=== PATIENT | male | born 1975 | race Caucasian/White ===

== ENCOUNTER 2019-05-23 00:46 | Inpatient (IN) ==
[2019-05-23] MEDS ORDERED: ALBUTEROL/IPRATROPIUM 3 ML NEB RESP TX STA (01:07)
[2019-05-23] MEDS: ALBUTEROL 2.5 MG/3 ML NEB RESP TX SCH (01:15)
[2019-05-23 02:08] LABS: Basophils # 0.2 10*3/uL (0.0-0.2); Basophils % 0.5 % (0.0-0.8); Eosinophils # 1.1 10*3/uL (0.0-0.87); Eosinophils % 3.5 % (0.00-10.9); Hematocrit 27.4 VOL% (42.0-52.0); Hemoglobin 9.5 GM/DL (14.0-18.0); Immature Granulocytes % 1.5 %; Immature Granulocytes Absolute 0.46 #; Lymphocytes # 1.6 10*3/uL (1.4-4.0); Lymphocytes % 5.2 % (21.2-54.2); Mean Corpuscular HGB Conc 34.7 GM/DL (32-36); Mean Corpuscular Volume 114.6 FL (87-102); Mean Platelet Volume 8.8 FL (9.6-12.0); Monocytes % 11.5 % (1.7-12.7); Neutrophils % 77.8 % (38.7-73.9); Platelet Count 150 T/CUMM (130-400); Red Blood Count 2.39 MC/CUMM (3.8-5.5); Red Cell Distribution Width 15.1 % (9.3-17.3)
[2019-05-23 02:19] LABS: INR 1.7; PT Patient Result 18.8 SECS (9.6-12.2)
[2019-05-23 02:35] LABS: Albumin 1.4 G/DL (3.4-5.0); Osmolality,Calculated 258.9 MOS/KG (273-304); Total Protein 7.9 G/DL (6.4-8.3)
[2019-05-23 02:39] LABS: Anisocytosis 1+; Eosinophils 6 % (0-10); Hypochromasia Slight; Lymphocytes 6 % (20-55); Microcytosis Slight; Platelet Estimate Adequate; Polychromasia Slight; Segmented Neutrophils 83 % (50-85); Total Cells Counted 100
[2019-05-23 02:41] LABS: Bilirubin,Total 12.4 MG/DL (0.2-1.0)
[2019-05-23] MEDS ORDERED: ALBUMIN 5% 25 GM in PREMIX 1 EACH IV ONE (04:34)
[2019-05-23] MEDS ORDERED: cefTRIAXone 1,000 MG in SODIUM CHLORIDE 0.9% 100 ML IV STA (04:37)
[2019-05-23] MEDS ORDERED: ONDANSETRON 4 MG/2 ML VIAL IV PRN (05:15)
[2019-05-23] MEDS ORDERED: PHYTONADIONE 10 MG/1 ML AMP SUBCUT ONE (05:20)
[2019-05-23] MEDS ORDERED: POTASSIUM CHLORIDE RIDER 100 ML IV ONE (06:13)
[2019-05-23 06:33] LABS: Hepatitis B Surface Ag Quant < 0.10 Index; Hepatitis B Surface Ag Result Negative (Negative); Hepatitis C Virus Ab Quant 0.41 Index; Hepatitis C Virus Ab Result Negative (Negative)
[2019-05-23] MEDS: POTASSIUM CHLORIDE RIDER 10 MEQ in PREMIX 1 EACH IV PRN ×4 (06:39→13:59)
[2019-05-23] MEDS: cefTRIAXone 2,000 MG in SYRINGE 1 EACH IV SCH (07:08)
[2019-05-23 08:02] LABS: Eosinophils,Pleural Fluid 5 %; Lymphocytes,Pleural Fluid 53 %; Monocytes,Pleural Fluid 4 %; Neutrophils,Pleural Fluid 38 %
[2019-05-23 08:19] LABS: RBC,Pleural Fluid 3322 T/CUMM
[2019-05-23 08:33] LABS: Amylase,Body Fluid 32 U/L; Glucose,Pleural Fluid 147 MG/DL; LDH,Pleural Fluid 54 U/L; Total Protein,Pleural Fluid < 1.0 G/DL; Triglycerides,Body Fluid < 14 MG/DL
[2019-05-23] MEDS ORDERED: SPIRONOLACTONE 50 MG TABLET PO SCH (09:00)
[2019-05-23] MEDS ORDERED: prednisoLONE 15 MG/5 ML ORAL.SYR PO SCH (09:00)
[2019-05-23] MEDS: FOLIC ACID 1 MG TABLET PO SCH (09:24)
[2019-05-23] MEDS: THIAMINE 100 MG TABLET PO SCH (09:25)
[2019-05-23 09:37] LABS: Calcium 7.9 MG/DL (8.5-10.1); Osmolality,Calculated 259.8 MOS/KG (273-304)
[2019-05-23] MEDS ORDERED: prednisoLONE 15 MG/5 ML ORAL.SYR PO ONE (13:39)
[2019-05-23] MEDS ORDERED: SPIRONOLACTONE 50 MG TABLET PO ONE (13:39)
[2019-05-23] MEDS ORDERED: ALBUMIN 25% 12.5 GM in PREMIX 1 EACH IV ONE (13:50)
[2019-05-23] MEDS ORDERED: ALBUMIN 25% 12.5 GM/50 ML VIAL IV ONE (13:57)
[2019-05-23] MEDS ORDERED: MAGNESIUM SULF RIDER 2 GM in PREMIX 1 EACH IV ONE (15:04)
[2019-05-23 16:09] LABS: Apearance,Urine CLEAR (Clear); Blood, Urine Negative (Negative); Glucose,Urine (UA) Negative (Negative); Ketones,Urine Negative (Negative); Nitrite,Urine Negative (Negative); Protein,Urine Negative; RBC,Urine 2 /HPF (0-4); Urine Color Amber (Yellow); Urine Specific Gravity 1.044 (1.001-1.035); WBC,Urine 1 /HPF (0-6)
[2019-05-23 16:10] LABS: Bilirubin,Urine Small mg/dL (Negative)
[2019-05-23] MEDS: POTASSIUM CHLORIDE 20 MEQ TABLET PO SCH ×3 (16:10→23:39)
[2019-05-23 17:57] LABS: Neutrophils,Peritoneal Fluid 24 %; RBC,Peritoneal Fluid 331 T/CUMM
[2019-05-23] MEDS: LACTULOSE 20 GM/30 ML UDCUP PO SCH ×2 (18:33→23:40)
[2019-05-24 02:03] LABS: Basophils % 0.2 % (0.0-0.8); Eosinophils % 0.2 % (0.00-10.9); Hematocrit 22.4 VOL% (42.0-52.0); Hemoglobin 7.4 GM/DL (14.0-18.0); Immature Granulocytes % 1.4 %; Immature Granulocytes Absolute 0.24 #; Lymphocytes # 1.8 10*3/uL (1.4-4.0); Lymphocytes % 10.4 % (21.2-54.2); Mean Corpuscular Volume 120.4 FL (87-102); Mean Platelet Volume 9.1 FL (9.6-12.0); Monocytes % 9.8 % (1.7-12.7); Platelet Count 88 T/CUMM (130-400); Red Blood Count 1.86 MC/CUMM (3.8-5.5); Red Cell Distribution Width 15.7 % (9.3-17.3); White Blood Count 17.4 T/CUMM (4-12)
[2019-05-24 02:21] LABS: Albumin 1.5 G/DL (3.4-5.0); Bilirubin,Total 11.8 MG/DL (0.2-1.0); Calcium 7.9 MG/DL (8.5-10.1); Osmolality,Calculated 262.8 MOS/KG (273-304); Total Protein 6.4 G/DL (6.4-8.3)
[2019-05-24 02:38] LABS: Band Neutrophils 4 % (0-10); Lymphocytes 11 % (20-55); Segmented Neutrophils 78 % (50-85); Total Cells Counted 100
[2019-05-24 02:39] LABS: Anisocytosis 1+; Ovalocytes 1+; Platelet Estimate Decreased
[2019-05-24] MEDS: LACTULOSE 20 GM/30 ML UDCUP PO SCH ×3 (06:05→19:35)
[2019-05-24] MEDS: POTASSIUM CHLORIDE RIDER 10 MEQ in PREMIX 1 EACH IV PRN ×3 (06:05→10:48)
[2019-05-24] MEDS: cefTRIAXone 2,000 MG in SYRINGE 1 EACH IV SCH (06:05)
[2019-05-24] MEDS: SPIRONOLACTONE 50 MG TABLET PO SCH (08:33)
[2019-05-24] MEDS: FOLIC ACID 1 MG TABLET PO SCH (08:34)
[2019-05-24] MEDS: prednisoLONE 15 MG/5 ML ORAL.SYR PO SCH (08:34)
[2019-05-24] MEDS: THIAMINE 100 MG TABLET PO SCH (08:34)
[2019-05-24 08:38] LABS: Random Urine Protein (Bench) 20 MG/DL (<11.9)
[2019-05-25] MEDS: LACTULOSE 20 GM/30 ML UDCUP PO SCH ×4 (00:09→17:41)
[2019-05-25 04:52] LABS: Basophils % 0.1 % (0.0-0.8); Eosinophils # 0.2 10*3/uL (0.0-0.87); Eosinophils % 1.2 % (0.00-10.9); Hematocrit 23.8 VOL% (42.0-52.0); Immature Granulocytes % 1.3 %; Immature Granulocytes Absolute 0.23 #; Lymphocytes # 2.3 10*3/uL (1.4-4.0); Lymphocytes % 12.9 % (21.2-54.2); Mean Corpuscular HGB Conc 33.6 GM/DL (32-36); Mean Corpuscular Volume 116.7 FL (87-102); Mean Platelet Volume 9.1 FL (9.6-12.0); Monocytes % 17.2 % (1.7-12.7); Neutrophils % 67.3 % (38.7-73.9); Platelet Count 123 T/CUMM (130-400); Red Blood Count 2.04 MC/CUMM (3.8-5.5); Red Cell Distribution Width 15.8 % (9.3-17.3); White Blood Count 17.7 T/CUMM (4-12)
[2019-05-25 05:19] LABS: Albumin 1.6 G/DL (3.4-5.0); Bilirubin,Total 9.2 MG/DL (0.2-1.0); Osmolality,Calculated 266.4 MOS/KG (273-304); Total Protein 6.7 G/DL (6.4-8.3)
[2019-05-25 05:22] LABS: Band Neutrophils 1 % (0-10); Eosinophils 2 % (0-10); Hypochromasia Slight; Lymphocytes 11 % (20-55); Platelet Estimate Normal; Segmented Neutrophils 77 % (50-85); Total Cells Counted 100
[2019-05-25] MEDS: cefTRIAXone 2,000 MG in SYRINGE 1 EACH IV SCH (05:32)
[2019-05-25] MEDS ORDERED: LACTATED RINGERS 1,000 ML IV SCH (08:00)
[2019-05-25] MEDS: THIAMINE 100 MG TABLET PO SCH (11:05)
[2019-05-25] MEDS: SPIRONOLACTONE 50 MG TABLET PO SCH (11:05)
[2019-05-25] MEDS: FOLIC ACID 1 MG TABLET PO SCH (11:05)
[2019-05-25] MEDS: prednisoLONE 15 MG/5 ML ORAL.SYR PO SCH (11:10)
[2019-05-25] MEDS ORDERED: FUROSEMIDE 40 MG/4 ML VIAL IV ONE (15:53)
[2019-05-25] MEDS: SPIRONOLACTONE 100 MG TABLET PO SCH (16:38)
[2019-05-25] MEDS: FUROSEMIDE 40 MG/4 ML VIAL IV SCH (16:39)
[2019-05-25] MEDS: LEVOFLOXACIN INJ 500 MG in PREMIX 1 EACH IV SCH (17:41)
[2019-05-25] MEDS: PIPERACILLIN/TAZOBACTAM 3,375 MG in SODIUM CHLORIDE 0.9% 100 ML IV SCH (19:02)
[2019-05-25] MEDS: ALBUTEROL 1.25 MG/3 ML NEB RESP TX SCH (19:26)
[2019-05-25] MEDS ORDERED: SPIRONOLACTONE 50 MG TABLET PO SCH (21:00)
[2019-05-26] MEDS: LACTULOSE 20 GM/30 ML UDCUP PO SCH ×4 (00:33→17:19)
[2019-05-26] MEDS: PIPERACILLIN/TAZOBACTAM 3,375 MG in SODIUM CHLORIDE 0.9% 100 ML IV SCH ×3 (00:33→17:18)
[2019-05-26] MEDS: ALBUTEROL 1.25 MG/3 ML NEB RESP TX SCH ×4 (00:38→19:13)
[2019-05-26 05:20] LABS: Basophils % 0.1 % (0.0-0.8); Eosinophils # 0.1 10*3/uL (0.0-0.87); Eosinophils % 0.7 % (0.00-10.9); Hematocrit 24.3 VOL% (42.0-52.0); Hemoglobin 8.3 GM/DL (14.0-18.0); Immature Granulocytes Absolute 0.15 #; Lymphocytes # 1.7 10*3/uL (1.4-4.0); Lymphocytes % 11.7 % (21.2-54.2); Mean Corpuscular HGB Conc 34.2 GM/DL (32-36); Mean Platelet Volume 9.1 FL (9.6-12.0); Monocytes % 17.1 % (1.7-12.7); Neutrophils % 69.4 % (38.7-73.9); Platelet Count 108 T/CUMM (130-400); Red Blood Count 2.06 MC/CUMM (3.8-5.5); Red Cell Distribution Width 15.8 % (9.3-17.3); White Blood Count 14.8 T/CUMM (4-12)
[2019-05-26 05:39] LABS: Albumin 1.5 G/DL (3.4-5.0); Bilirubin,Total 8.2 MG/DL (0.2-1.0); Calcium 7.6 MG/DL (8.5-10.1); Osmolality,Calculated 269.1 MOS/KG (273-304); Total Protein 6.5 G/DL (6.4-8.3)
[2019-05-26 05:51] LABS: Eosinophils 2 % (0-10); Lymphocytes 6 % (20-55); Metamyelocytes 3 %; Platelet Estimate Decreased; Segmented Neutrophils 70 % (50-85); Total Cells Counted 100
[2019-05-26 05:52] LABS: Hypochromasia 1+; Microcytosis 1+; Polychromasia Few
[2019-05-26] MEDS: SPIRONOLACTONE 100 MG TABLET PO SCH (10:46)
[2019-05-26] MEDS: FOLIC ACID 1 MG TABLET PO SCH (10:46)
[2019-05-26] MEDS: prednisoLONE 15 MG/5 ML ORAL.SYR PO SCH (10:47)
[2019-05-26] MEDS: THIAMINE 100 MG TABLET PO SCH (10:47)
[2019-05-26] MEDS: FUROSEMIDE 40 MG/4 ML VIAL IV SCH ×2 (10:47→15:08)
[2019-05-26] MEDS: POTASSIUM CHLORIDE RIDER 10 MEQ in PREMIX 1 EACH IV PRN ×3 (10:48→15:08)
[2019-05-26] MEDS: LEVOFLOXACIN INJ 500 MG in PREMIX 1 EACH IV SCH (17:18)
[2019-05-26] MEDS ORDERED: SPIRONOLACTONE 100 MG TABLET PO SCH (21:00)
[2019-05-27] MEDS: ALBUTEROL 1.25 MG/3 ML NEB RESP TX SCH ×4 (00:44→19:29)
[2019-05-27] MEDS: LACTULOSE 20 GM/30 ML UDCUP PO SCH ×4 (00:55→18:16)
[2019-05-27] MEDS: PIPERACILLIN/TAZOBACTAM 3,375 MG in SODIUM CHLORIDE 0.9% 100 ML IV SCH ×3 (01:00→18:17)
[2019-05-27 05:20] LABS: Basophils % 0.1 % (0.0-0.8); Eosinophils # 0.2 10*3/uL (0.0-0.87); Eosinophils % 1.5 % (0.00-10.9); Hematocrit 25.1 VOL% (42.0-52.0); Hemoglobin 8.5 GM/DL (14.0-18.0); Immature Granulocytes % 1.1 %; Immature Granulocytes Absolute 0.16 #; Lymphocytes # 2.1 10*3/uL (1.4-4.0); Mean Corpuscular HGB Conc 33.9 GM/DL (32-36); Mean Platelet Volume 8.7 FL (9.6-12.0); Monocytes % 17.5 % (1.7-12.7); Neutrophils % 64.8 % (38.7-73.9); Platelet Count 101 T/CUMM (130-400); Red Blood Count 2.11 MC/CUMM (3.8-5.5); Red Cell Distribution Width 15.8 % (9.3-17.3)
[2019-05-27 05:43] LABS: Albumin 1.4 G/DL (3.4-5.0); Bilirubin,Total 7.9 MG/DL (0.2-1.0); Calcium 7.4 MG/DL (8.5-10.1); Osmolality,Calculated 270.1 MOS/KG (273-304); Total Protein 6.5 G/DL (6.4-8.3)
[2019-05-27 05:49] LABS: Eosinophils 1 % (0-10); Hypochromasia Slight; Lymphocytes 9 % (20-55); Metamyelocytes 4 %; Platelet Estimate Decreased; Segmented Neutrophils 77 % (50-85); Smudge Cells Few; Total Cells Counted 100
[2019-05-27] MEDS: SPIRONOLACTONE 100 MG TABLET PO SCH ×2 (08:54→20:59)
[2019-05-27] MEDS: FOLIC ACID 1 MG TABLET PO SCH (08:54)
[2019-05-27] MEDS: FUROSEMIDE 40 MG/4 ML VIAL IV SCH ×2 (08:57→17:57)
[2019-05-27] MEDS: THIAMINE 100 MG TABLET PO SCH (08:58)
[2019-05-27] MEDS: prednisoLONE 15 MG/5 ML ORAL.SYR PO SCH (08:58)
[2019-05-27] MEDS: POTASSIUM CHLORIDE RIDER 10 MEQ in PREMIX 1 EACH IV PRN ×3 (14:34→21:03)
[2019-05-27] MEDS: LEVOFLOXACIN INJ 500 MG in PREMIX 1 EACH IV SCH (18:02)
[2019-05-28] MEDS: ALBUTEROL 1.25 MG/3 ML NEB RESP TX SCH ×4 (00:23→19:10)
[2019-05-28] MEDS: LACTULOSE 20 GM/30 ML UDCUP PO SCH ×4 (00:28→17:42)
[2019-05-28] MEDS: POTASSIUM CHLORIDE RIDER 10 MEQ in PREMIX 1 EACH IV PRN (00:29)
[2019-05-28] MEDS: PIPERACILLIN/TAZOBACTAM 3,375 MG in SODIUM CHLORIDE 0.9% 100 ML IV SCH ×3 (01:35→16:47)
[2019-05-28 05:51] LABS: Basophils % 0.1 % (0.0-0.8); Eosinophils # 0.1 10*3/uL (0.0-0.87); Eosinophils % 0.7 % (0.00-10.9); Hematocrit 27.1 VOL% (42.0-52.0); Immature Granulocytes % 0.8 %; Immature Granulocytes Absolute 0.13 #; Lymphocytes # 1.5 10*3/uL (1.4-4.0); Lymphocytes % 9.6 % (21.2-54.2); Mean Corpuscular HGB Conc 33.2 GM/DL (32-36); Mean Corpuscular Volume 118.9 FL (87-102); Mean Platelet Volume 9.2 FL (9.6-12.0); Monocytes % 14.5 % (1.7-12.7); Neutrophils % 74.3 % (38.7-73.9); Platelet Count 108 T/CUMM (130-400); Red Blood Count 2.28 MC/CUMM (3.8-5.5); Red Cell Distribution Width 15.5 % (9.3-17.3); White Blood Count 15.8 T/CUMM (4-12)
[2019-05-28 06:13] LABS: Albumin 1.6 G/DL (3.4-5.0); Bilirubin,Total 9.2 MG/DL (0.2-1.0); Calcium 7.5 MG/DL (8.5-10.1); Osmolality,Calculated 263.5 MOS/KG (273-304); Total Protein 6.9 G/DL (6.4-8.3)
[2019-05-28 06:17] LABS: Hypochromasia 1+
[2019-05-28 06:18] LABS: Microcytosis Slight; Platelet Estimate Decreased
[2019-05-28] MEDS ORDERED: MAGNESIUM SULF RIDER 2 GM in PREMIX 1 EACH IV PRN (07:21)
[2019-05-28] MEDS ORDERED: MAGNESIUM SULF RIDER 4 GM in PREMIX 1 EACH IV PRN (07:21)
[2019-05-28] MEDS: prednisoLONE 15 MG/5 ML ORAL.SYR PO SCH (08:48)
[2019-05-28] MEDS: FUROSEMIDE 40 MG/4 ML VIAL IV SCH ×2 (08:48→15:15)
[2019-05-28] MEDS: SPIRONOLACTONE 100 MG TABLET PO SCH ×2 (08:49→21:02)
[2019-05-28] MEDS: FOLIC ACID 1 MG TABLET PO SCH (08:49)
[2019-05-28] MEDS: THIAMINE 100 MG TABLET PO SCH (08:49)
[2019-05-28] MEDS ORDERED: POTASSIUM CHLORIDE 20 MEQ TABLET PO PRN ×2 (09:17→15:26)
[2019-05-28] MEDS: LEVOFLOXACIN INJ 500 MG in PREMIX 1 EACH IV SCH (16:46)
[2019-05-28] MEDS ORDERED: ALBUMIN 25% 50 GM in PREMIX 1 EACH IV ONE (18:30)
[2019-05-29] MEDS: LACTULOSE 20 GM/30 ML UDCUP PO SCH ×5 (00:13→23:41)
[2019-05-29] MEDS: ALBUTEROL 1.25 MG/3 ML NEB RESP TX SCH ×4 (00:28→19:50)
[2019-05-29] MEDS: PIPERACILLIN/TAZOBACTAM 3,375 MG in SODIUM CHLORIDE 0.9% 100 ML IV SCH (01:57)
[2019-05-29] MEDS: FOLIC ACID 1 MG TABLET PO SCH (08:36)
[2019-05-29] MEDS: SPIRONOLACTONE 100 MG TABLET PO SCH ×2 (08:37→21:08)
[2019-05-29] MEDS: THIAMINE 100 MG TABLET PO SCH (08:37)
[2019-05-29] MEDS: prednisoLONE 15 MG/5 ML ORAL.SYR PO SCH (08:43)
[2019-05-29] MEDS: BUMETANIDE 2.5 MG/10 ML VIAL IV SCH ×2 (08:44→16:00)
[2019-05-29] MEDS ORDERED: ALBUMIN 25% 50 GM in PREMIX 1 EACH IV ONE (09:00)
[2019-05-29 14:46] LABS: Albumin 2.6 G/DL (3.4-5.0); Bilirubin,Direct 4.49 MG/DL (0.0-0.20); Bilirubin,Indirect 6.5 MG/DL (0.0-1.0); Total Protein 7.3 G/DL (6.4-8.3)
[2019-05-30] MEDS: ALBUTEROL 1.25 MG/3 ML NEB RESP TX SCH ×4 (00:37→19:20)
[2019-05-30 05:22] LABS: Basophils % 0.1 % (0.0-0.8); Eosinophils # 0.2 10*3/uL (0.0-0.87); Eosinophils % 1.3 % (0.00-10.9); Hematocrit 24.2 VOL% (42.0-52.0); Hemoglobin 8.5 GM/DL (14.0-18.0); Immature Granulocytes % 1.4 %; Lymphocytes # 1.9 10*3/uL (1.4-4.0); Lymphocytes % 13.1 % (21.2-54.2); Mean Corpuscular HGB Conc 35.1 GM/DL (32-36); Mean Corpuscular Volume 115.2 FL (87-102); Mean Platelet Volume 9.2 FL (9.6-12.0); Monocytes % 18.1 % (1.7-12.7); Red Cell Distribution Width 14.8 % (9.3-17.3); White Blood Count 14.6 T/CUMM (4-12)
[2019-05-30 05:44] LABS: Platelet Count 95 T/CUMM (130-400)
[2019-05-30 05:46] LABS: Eosinophils 2 % (0-10); Lymphocytes 15 % (20-55); Platelet Estimate Decreased; Segmented Neutrophils 74 % (50-85); Total Cells Counted 100
[2019-05-30 05:47] LABS: Hypochromasia 1+; Ovalocytes Slight
[2019-05-30 05:48] LABS: Microcytosis Slight
[2019-05-30 05:49] LABS: Albumin 2.2 G/DL (3.4-5.0); Bilirubin,Total 10.6 MG/DL (0.2-1.0); Calcium 8.6 MG/DL (8.5-10.1); Osmolality,Calculated 257.1 MOS/KG (273-304); Total Protein 6.3 G/DL (6.4-8.3)
[2019-05-30 05:53] LABS: Albumin 2.2 G/DL (3.4-5.0); Bilirubin,Direct 4.03 MG/DL (0.0-0.20); Bilirubin,Indirect 6.4 MG/DL (0.0-1.0); Bilirubin,Total 10.4 MG/DL (0.2-1.0); Total Protein 6.4 G/DL (6.4-8.3)
[2019-05-30] MEDS: LACTULOSE 20 GM/30 ML UDCUP PO SCH ×3 (06:31→17:59)
[2019-05-30] MEDS: BUMETANIDE 2.5 MG/10 ML VIAL IV SCH ×2 (07:58→15:40)
[2019-05-30] MEDS ORDERED: PROPOFOL 200 MG/20 ML VIAL IV ONE (10:00)
[2019-05-30] MEDS ORDERED: LIDOCAINE 2% 5 ML VIAL ONE (10:00)
[2019-05-30] MEDS ORDERED: PHENYLEPHRINE 1 MG/10 ML SYRINGE IV ONE (10:00)
[2019-05-30] MEDS: FOLIC ACID 1 MG TABLET PO SCH (10:47)
[2019-05-30] MEDS: THIAMINE 100 MG TABLET PO SCH (10:47)
[2019-05-30] MEDS: prednisoLONE 15 MG/5 ML ORAL.SYR PO SCH (10:47)
[2019-05-30] MEDS: SPIRONOLACTONE 100 MG TABLET PO SCH ×2 (10:47→21:29)
[2019-05-30] MEDS ORDERED: HEPARIN DRIP 25,000 UNITS/500 ML PREMIX IV SCH (15:00)
[2019-05-30 16:28] LABS: PT Patient Result 21.6 SECS (9.6-12.2)
[2019-05-30] MEDS: PROPRANOLOL 20 MG TABLET PO SCH (21:29)
[2019-05-31] MEDS: ALBUTEROL 1.25 MG/3 ML NEB RESP TX SCH ×3 (00:15→14:46)
[2019-05-31] MEDS: LACTULOSE 20 GM/30 ML UDCUP PO SCH ×3 (00:23→14:55)
[2019-05-31 07:12] LABS: Basophils % 0.2 % (0.0-0.8); Eosinophils # 0.4 10*3/uL (0.0-0.87); Eosinophils % 2.8 % (0.00-10.9); Hematocrit 23.9 VOL% (42.0-52.0); Hemoglobin 8.3 GM/DL (14.0-18.0); Immature Granulocytes % 1.8 %; Immature Granulocytes Absolute 0.23 #; Lymphocytes # 2.1 10*3/uL (1.4-4.0); Lymphocytes % 16.4 % (21.2-54.2); Mean Corpuscular HGB Conc 34.7 GM/DL (32-36); Mean Corpuscular Volume 117.2 FL (87-102); Mean Platelet Volume 9.5 FL (9.6-12.0); Monocytes % 17.9 % (1.7-12.7); Neutrophils % 60.9 % (38.7-73.9); Platelet Count 103 T/CUMM (130-400); Red Blood Count 2.04 MC/CUMM (3.8-5.5); Red Cell Distribution Width 14.6 % (9.3-17.3); White Blood Count 12.5 T/CUMM (4-12)
[2019-05-31 07:26] LABS: Eosinophils 5 % (0-10); Hypochromasia 1+; Lymphocytes 13 % (20-55); Platelet Estimate Decreased; Segmented Neutrophils 68 % (50-85); Total Cells Counted 100
[2019-05-31 07:27] LABS: Microcytosis Slight
[2019-05-31 07:39] LABS: Albumin 1.9 G/DL (3.4-5.0); Calcium 7.6 MG/DL (8.5-10.1); Osmolality,Calculated 256.4 MOS/KG (273-304); Total Protein 5.8 G/DL (6.4-8.3)
[2019-05-31 07:40] LABS: Bilirubin,Total 12.3 MG/DL (0.2-1.0)
[2019-05-31] MEDS ORDERED: BUMETANIDE 1 MG/4 ML VIAL IV SCH (08:00)
[2019-05-31] MEDS: FOLIC ACID 1 MG TABLET PO SCH (10:01)
[2019-05-31] MEDS: SPIRONOLACTONE 100 MG TABLET PO SCH (10:01)
[2019-05-31] MEDS: prednisoLONE 15 MG/5 ML ORAL.SYR PO SCH (10:01)
[2019-05-31] MEDS: THIAMINE 100 MG TABLET PO SCH (10:02)
[2019-05-31 11:36] VITALS: BP 111/55
[2019-05-31] MEDS: PROPRANOLOL 20 MG TABLET PO SCH (12:00)
== END 2019-05-31 14:53 | disposition home or self-care (01) | DRG 432 ==
LOC: N.ED 00:46 → SUATTDRO 05:16 → N.EDINP 05:16 → N.CC 05:49 → N.2E 05-24 23:02
PROVIDERS: ADMIT Internal Medicine; ATTEND Emergency Medicine

== ENCOUNTER 2019-06-29 19:24 | Inpatient (IN) ==
[2019-06-29] MEDS ORDERED: SODIUM CHLORIDE 0.9% 1,000 ML IV STA (20:24)
[2019-06-29 20:49] LABS: Basophils % 0.1 % (0.0-0.8); Eosinophils % 0.1 % (0.00-10.9); Hematocrit 25.8 VOL% (42.0-52.0); Hemoglobin 8.4 GM/DL (14.0-18.0); Immature Granulocytes % 2.3 %; Immature Granulocytes Absolute 0.49 #; Lymphocytes # 1.9 10*3/uL (1.4-4.0); Lymphocytes % 8.9 % (21.2-54.2); Mean Corpuscular HGB Conc 32.6 GM/DL (32-36); Mean Corpuscular Volume 113.2 FL (87-102); Monocytes % 7.8 % (1.7-12.7); NRBC # 0.04 10*3/uL; Neutrophils % 80.8 % (38.7-73.9); Platelet Count 168 T/CUMM (130-400); Red Blood Count 2.28 MC/CUMM (3.8-5.5); Red Cell Distribution Width 17.2 % (9.3-17.3); White Blood Count 21.3 T/CUMM (4-12)
[2019-06-29 21:00] LABS: Apearance,Urine CLEAR (Clear); Bacteria,Urine Occasional /HPF (Few); Bilirubin,Urine Moderate mg/dL (Negative); Blood, Urine Negative (Negative); Glucose,Urine (UA) Negative (Negative); Hyaline Casts,Urine 16 /LPF (0-3); Ketones,Urine Negative (Negative); Mucus,Urine Occasional /LPF (Occasional); Nitrite,Urine Negative (Negative); Protein,Urine Negative; RBC,Urine 4 /HPF (0-4); Urine Color Amber (Yellow); Urine Specific Gravity 1.015 (1.001-1.035); WBC,Urine 3 /HPF (0-6)
[2019-06-29] MEDS ORDERED: VANCOMYCIN INJ 1,000 MG in SODIUM CHLORIDE 0.9% 250 ML IV STA ×2 (21:00→21:04)
[2019-06-29] MEDS ORDERED: CEFEPIME 2,000 MG in SODIUM CHLORIDE 0.9% 100 ML IV STA (21:00)
[2019-06-29] MEDS ORDERED: CEFEPIME 2,000 MG in SYRINGE 1 EACH IV STA (21:03)
[2019-06-29 21:08] LABS: INR 3.5
[2019-06-29 21:09] LABS: PT Patient Result 37.5 SECS (9.6-12.2); Partial Thromboplastin Time 48.5 SECS (20.8-36.0)
[2019-06-29 21:28] LABS: Band Neutrophils 1 % (0-10); Lymphocytes 7 % (20-55); Segmented Neutrophils 87 % (50-85); Total Cells Counted 100
[2019-06-29 21:31] LABS: Macrocytosis 2+; Platelet Estimate Normal; Polychromasia 1+
[2019-06-29 21:48] LABS: Albumin 1.5 G/DL (3.4-5.0); Calcium 8.3 MG/DL (8.5-10.1); Osmolality,Calculated 268.1 MOS/KG (273-304); Total Protein 6.4 G/DL (6.4-8.3)
[2019-06-29 21:50] LABS: Bilirubin,Total 13.1 MG/DL (0.2-1.0)
[2019-06-29] MEDS ORDERED: ONDANSETRON 4 MG/2 ML VIAL IV PRN (22:59)
[2019-06-29] MEDS ORDERED: ALBUTEROL 2.5 MG/3 ML NEB RESP TX PRN (22:59)
[2019-06-29] MEDS ORDERED: SODIUM CHLORIDE 0.9% 1,000 ML IV PRN (23:21)
[2019-06-29] MEDS ORDERED: NOREPINEPHRINE 4 MG/4 ML VIAL IV ONE (23:57)
[2019-06-30] MEDS ORDERED: ALBUMIN 25% 50 GM in PREMIX 1 EACH IV ONE
[2019-06-30] MEDS: NOREPINEPHRINE 8 MG in SODIUM CHLORIDE 0.9% 242 ML IV PRN (00:30)
[2019-06-30] MEDS: PANTOPRAZOLE 40 MG VIAL IV SCH ×2 (01:39→10:32)
[2019-06-30] MEDS: CEFEPIME 1,000 MG in SODIUM CHLORIDE 0.9% 100 ML IV SCH ×4 (04:32→21:00)
[2019-06-30 06:41] LABS: Basophils % 0.1 % (0.0-0.8); Eosinophils % 0.2 % (0.00-10.9); Hematocrit 19.6 VOL% (42.0-52.0); Immature Granulocytes % 1.9 %; Immature Granulocytes Absolute 0.32 #; Lymphocytes # 1.4 10*3/uL (1.4-4.0); Lymphocytes % 8.5 % (21.2-54.2); Mean Corpuscular HGB Conc 32.1 GM/DL (32-36); Mean Platelet Volume 9.5 FL (9.6-12.0); Monocytes % 8.6 % (1.7-12.7); Neutrophils % 80.7 % (38.7-73.9); Platelet Count 94 T/CUMM (130-400); Red Blood Count 1.72 MC/CUMM (3.8-5.5); Red Cell Distribution Width 16.9 % (9.3-17.3)
[2019-06-30 06:45] LABS: Hemoglobin 6.3 GM/DL (14.0-18.0)
[2019-06-30 06:59] LABS: INR 3.3
[2019-06-30 07:00] LABS: PT Patient Result 35.8 SECS (9.6-12.2)
[2019-06-30 07:01] LABS: Albumin 1.7 G/DL (3.4-5.0); Bilirubin,Total 11.6 MG/DL (0.2-1.0); Calcium 7.8 MG/DL (8.5-10.1); Osmolality,Calculated 272.7 MOS/KG (273-304); Total Protein 5.7 G/DL (6.4-8.3)
[2019-06-30 07:44] LABS: Acanthocytes Few; Anisocytosis 1+; Burr Cells Slight; Hypochromasia 1+; Target Cells Slight
[2019-06-30 07:45] LABS: Platelet Estimate Decreased; Polychromasia Slight
[2019-06-30 07:46] LABS: Macrocytosis 1+
[2019-06-30] MEDS: SPIRONOLACTONE 100 MG TABLET PO SCH ×2 (10:46→20:01)
[2019-06-30] MEDS: FUROSEMIDE 40 MG TABLET PO SCH ×2 (10:47→20:01)
[2019-06-30] MEDS: FOLIC ACID 1 MG TABLET PO SCH (10:47)
[2019-06-30] MEDS: prednisoLONE 15 MG/5 ML ORAL.SYR PO SCH ×2 (11:22→11:29)
[2019-06-30 11:40] LABS: Apearance,Urine CLEAR (Clear); Blood, Urine Negative (Negative); Glucose,Urine (UA) Negative (Negative); Hyaline Casts,Urine 13 /LPF (0-3); Ketones,Urine Negative (Negative); Mucus,Urine Occasional /LPF (Occasional); Nitrite,Urine Negative (Negative); Protein,Urine Negative; RBC,Urine 2 /HPF (0-4); Squamous Epithelial Cell,Urine Occasional /HPF (0-10); Urine Color Amber (Yellow); Urine Specific Gravity 1.019 (1.001-1.035); WBC,Urine 3 /HPF (0-6)
[2019-06-30 11:44] LABS: Bilirubin,Urine Small mg/dL (Negative)
[2019-06-30 16:56] LABS: Neutrophils,Peritoneal Fluid 99 %
[2019-06-30 16:57] LABS: RBC,Peritoneal Fluid > 100000 T/CUMM
[2019-06-30 20:13] LABS: Hematocrit 25.1 VOL% (42.0-52.0); Hemoglobin 8.3 GM/DL (14.0-18.0)
[2019-06-30] MEDS: FUROSEMIDE 20 MG/2 ML VIAL IV SCH (20:41)
[2019-07-01] MEDS: NOREPINEPHRINE 8 MG in SODIUM CHLORIDE 0.9% 242 ML IV PRN ×2 (01:38→09:30)
[2019-07-01] MEDS: CEFEPIME 1,000 MG in SODIUM CHLORIDE 0.9% 100 ML IV SCH ×4 (03:55→21:57)
[2019-07-01 05:43] LABS: Basophils % 0.2 % (0.0-0.8); Eosinophils % 0.1 % (0.00-10.9); Hematocrit 29.6 VOL% (42.0-52.0); Hemoglobin 9.4 GM/DL (14.0-18.0); Immature Granulocytes Absolute 0.38 #; Lymphocytes # 2.2 10*3/uL (1.4-4.0); Lymphocytes % 11.3 % (21.2-54.2); Mean Corpuscular HGB Conc 31.8 GM/DL (32-36); Mean Corpuscular Volume 113.4 FL (87-102); Mean Platelet Volume 9.8 FL (9.6-12.0); Monocytes % 11.1 % (1.7-12.7); NRBC # 0.03 10*3/uL; Neutrophils % 75.3 % (38.7-73.9); Platelet Count 126 T/CUMM (130-400); Red Blood Count 2.61 MC/CUMM (3.8-5.5); Red Cell Distribution Width 21.6 % (9.3-17.3); White Blood Count 19.4 T/CUMM (4-12)
[2019-07-01 05:51] LABS: Calcium 9.2 MG/DL (8.5-10.1); Osmolality,Calculated 277.1 MOS/KG (273-304)
[2019-07-01] MEDS: FUROSEMIDE 20 MG/2 ML VIAL IV SCH ×2 (09:24→16:14)
[2019-07-01] MEDS: PANTOPRAZOLE 40 MG VIAL IV SCH ×2 (09:31→20:14)
[2019-07-01] MEDS: SPIRONOLACTONE 100 MG TABLET PO SCH ×3 (09:31→20:14)
[2019-07-01] MEDS: FOLIC ACID 1 MG TABLET PO SCH (09:31)
[2019-07-01] MEDS: LACTULOSE 20 GM/30 ML UDCUP PO SCH ×2 (09:51→20:14)
[2019-07-01] MEDS ORDERED: RIFAXIMIN 550 MG TABLET PO SCH (10:00)
[2019-07-01] MEDS ORDERED: VANCOMYCIN INJ 1,000 MG in SODIUM CHLORIDE 0.9% 250 ML IV SCH (11:00)
[2019-07-01] MEDS: ALBUMIN 25% 25 GM in PREMIX 1 EACH IV SCH ×2 (12:23→23:40)
[2019-07-01] MEDS ORDERED: SPIRONOLACTONE 100 MG TABLET PO SCH (15:00)
[2019-07-01] MEDS ORDERED: PHYTONADIONE 10 MG/1 ML AMP SUBCUT ONE (15:17)
[2019-07-01] MEDS: SUCRALFATE 1 GM TABLET PO SCH (20:14)
[2019-07-02] MEDS: CEFEPIME 1,000 MG in SODIUM CHLORIDE 0.9% 100 ML IV SCH ×4 (04:15→22:25)
[2019-07-02 04:31] LABS: Eosinophils # 0.2 10*3/uL (0.0-0.87); Eosinophils % 1.2 % (0.00-10.9); Hematocrit 19.6 VOL% (42.0-52.0); Hemoglobin 6.5 GM/DL (14.0-18.0); Immature Granulocytes % 2.7 %; Immature Granulocytes Absolute 0.34 #; Lymphocytes # 1.3 10*3/uL (1.4-4.0); Lymphocytes % 10.6 % (21.2-54.2); Mean Corpuscular HGB Conc 33.2 GM/DL (32-36); Mean Corpuscular Volume 109.5 FL (87-102); Mean Platelet Volume 9.3 FL (9.6-12.0); Monocytes % 12.3 % (1.7-12.7); NRBC # 0.02 10*3/uL; Neutrophils % 73.2 % (38.7-73.9); Platelet Count 74 T/CUMM (130-400); Red Blood Count 1.79 MC/CUMM (3.8-5.5); Red Cell Distribution Width 20.5 % (9.3-17.3); White Blood Count 12.6 T/CUMM (4-12)
[2019-07-02 04:37] LABS: INR 2.5; PT Patient Result 26.5 SECS (9.6-12.2)
[2019-07-02 05:08] LABS: Eosinophils 2 % (0-10); Lymphocytes 12 % (20-55); Segmented Neutrophils 78 % (50-85); Total Cells Counted 100
[2019-07-02 05:13] LABS: % Iron Saturation 18.6 % (18-50); Albumin 2.2 G/DL (3.4-5.0); Anisocytosis 1+; Bilirubin,Total 9.6 MG/DL (0.2-1.0); Calcium 8.2 MG/DL (8.5-10.1); Hypochromasia 1+; Macrocytosis 1+; Osmolality,Calculated 276.2 MOS/KG (273-304); Target Cells Slight; Total Protein 5.9 G/DL (6.4-8.3)
[2019-07-02 05:14] LABS: Polychromasia Slight
[2019-07-02 05:15] LABS: Platelet Estimate Decreased
[2019-07-02] MEDS ORDERED: PHYTONADIONE 10 MG/1 ML AMP SUBCUT ONE (08:16)
[2019-07-02] MEDS ORDERED: SODIUM CHLORIDE 0.9% 1,000 ML IV PRN (08:17)
[2019-07-02] MEDS: SUCRALFATE 1 GM TABLET PO SCH ×4 (08:47→20:21)
[2019-07-02] MEDS: FUROSEMIDE 20 MG/2 ML VIAL IV SCH ×2 (08:48→15:39)
[2019-07-02] MEDS: PANTOPRAZOLE 40 MG VIAL IV SCH ×2 (08:50→20:21)
[2019-07-02] MEDS: SPIRONOLACTONE 100 MG TABLET PO SCH ×2 (08:54→15:29)
[2019-07-02] MEDS: FOLIC ACID 1 MG TABLET PO SCH (08:54)
[2019-07-02] MEDS ORDERED: LACTULOSE 20 GM/30 ML UDCUP PO PRN (09:00)
[2019-07-02] MEDS ORDERED: LACTULOSE 20 GM/30 ML UDCUP PO SCH (09:00)
[2019-07-02] MEDS: ALBUMIN 25% 25 GM in PREMIX 1 EACH IV SCH (12:08)
[2019-07-02 20:13] LABS: Allen Test Positive; Pt O2 Delivery Device Other
[2019-07-02 20:14] LABS: ABG Base Excess 11.7 MMOL/L (-2.5-2.5); ABG HCO3 35.5 MMOL/L (20-26); ABG Oxygen Saturation 99.8 % (95-100); ABG PH 7.221 (7.35-7.45); ABG TCO2 40.5 MMOL/L (23-27)
[2019-07-03] MEDS: CEFEPIME 1,000 MG in SODIUM CHLORIDE 0.9% 100 ML IV SCH ×4 (04:36→21:07)
[2019-07-03 05:02] LABS: Albumin 2.4 G/DL (3.4-5.0); Bilirubin,Total 11.3 MG/DL (0.2-1.0); Calcium 8.8 MG/DL (8.5-10.1); Osmolality,Calculated 274.1 MOS/KG (273-304); Total Protein 6.3 G/DL (6.4-8.3)
[2019-07-03 05:09] LABS: Bilirubin,Total 11.6 MG/DL (0.2-1.0)
[2019-07-03 05:10] LABS: Albumin 2.5 G/DL (3.4-5.0); Bilirubin,Direct 5.5 MG/DL (0.0-0.20); Bilirubin,Indirect 6.1 MG/DL (0.0-1.0); Total Protein 6.5 G/DL (6.4-8.3)
[2019-07-03 05:15] LABS: ABG HCO3 44.2 MMOL/L (20-26); ABG Oxygen Saturation 99.1 % (95-100); ABG PH 7.264 (7.35-7.45); ABG PO2 164.8 MM HG (80-95); ABG TCO2 47.3 MMOL/L (23-27); Pt O2 Delivery Device BIPAP
[2019-07-03 05:17] LABS: ABG PCO2 99.9 MM HG (35-48)
[2019-07-03 05:21] LABS: Calcium 9.3 MG/DL (8.5-10.1); Osmolality,Calculated 272.2 MOS/KG (273-304)
[2019-07-03 05:32] LABS: Basophils % 0.1 % (0.0-0.8); Eosinophils # 0.1 10*3/uL (0.0-0.87); Eosinophils % 0.7 % (0.00-10.9); Hematocrit 23.1 VOL% (42.0-52.0); Hemoglobin 7.4 GM/DL (14.0-18.0); Immature Granulocytes % 1.6 %; Immature Granulocytes Absolute 0.23 #; Lymphocytes # 1.3 10*3/uL (1.4-4.0); Lymphocytes % 8.6 % (21.2-54.2); Mean Corpuscular Volume 106.9 FL (87-102); Mean Platelet Volume 9.5 FL (9.6-12.0); NRBC # 0.02 10*3/uL; Platelet Count 81 T/CUMM (130-400); Red Blood Count 2.16 MC/CUMM (3.8-5.5); Red Cell Distribution Width 23.3 % (9.3-17.3); White Blood Count 14.8 T/CUMM (4-12)
[2019-07-03 05:34] LABS: INR 1.7; PT Patient Result 18.9 SECS (9.6-12.2)
[2019-07-03 06:04] LABS: Hypochromasia 1+; Macrocytosis 1+; Polychromasia Slight; Target Cells Slight
[2019-07-03 06:05] LABS: Basophilic Stippling Slight; Platelet Estimate Decreased
[2019-07-03] MEDS: SUCRALFATE 1 GM TABLET PO SCH ×4 (08:12→21:05)
[2019-07-03] MEDS: FOLIC ACID 1 MG TABLET PO SCH (08:12)
[2019-07-03] MEDS ORDERED: CIPROFLOXACIN 500 MG TABLET PO SCH (09:00)
[2019-07-03] MEDS: PANTOPRAZOLE 40 MG VIAL IV SCH ×2 (09:32→21:05)
[2019-07-03] MEDS: FUROSEMIDE 20 MG/2 ML VIAL IV SCH ×2 (09:35→16:48)
[2019-07-03] MEDS: LEVOFLOXACIN INJ 500 MG in PREMIX 1 EACH IV SCH (09:35)
[2019-07-03 09:53] VITALS: BP 118/66
[2019-07-03 16:52] LABS: Hematocrit 24.3 VOL% (42.0-52.0); Hemoglobin 7.6 GM/DL (14.0-18.0)
[2019-07-03 18:39] LABS: RBC,Peritoneal Fluid 1174 T/CUMM
[2019-07-03 20:54] LABS: Basophils % 0.1 % (0.0-0.8); Eosinophils # 0.1 10*3/uL (0.0-0.87); Eosinophils % 0.6 % (0.00-10.9); Hematocrit 22.5 VOL% (42.0-52.0); Hemoglobin 7.1 GM/DL (14.0-18.0); Immature Granulocytes % 1.5 %; Immature Granulocytes Absolute 0.24 #; Lymphocytes # 2.1 10*3/uL (1.4-4.0); Lymphocytes % 13.2 % (21.2-54.2); Mean Corpuscular HGB Conc 31.6 GM/DL (32-36); Mean Corpuscular Volume 109.2 FL (87-102); Mean Platelet Volume 9.3 FL (9.6-12.0); Monocytes % 13.4 % (1.7-12.7); Neutrophils % 71.2 % (38.7-73.9); Platelet Count 89 T/CUMM (130-400); Red Blood Count 2.06 MC/CUMM (3.8-5.5); Red Cell Distribution Width 23.4 % (9.3-17.3); White Blood Count 15.6 T/CUMM (4-12)
[2019-07-03 21:43] LABS: Neutrophils,Peritoneal Fluid 19 %
[2019-07-03] MEDS ORDERED: NOREPINEPHRINE 4 MG/4 ML VIAL IV ONE (21:45)
[2019-07-03] MEDS: NOREPINEPHRINE 8 MG in SODIUM CHLORIDE 0.9% 242 ML IV PRN (21:47)
[2019-07-03 22:04] LABS: Band Neutrophils 2 % (0-10); Lymphocytes 10 % (20-55); Macrocytosis 1+; Platelet Estimate Decreased; Segmented Neutrophils 80 % (50-85); Total Cells Counted 100
[2019-07-03] MEDS ORDERED: SODIUM CHLORIDE 0.9% 500 ML IV ONE (22:05)
[2019-07-03] MEDS ORDERED: METOPROLOL TARTRATE 5 MG/5 ML VIAL IV ONE (22:05)
[2019-07-03] MEDS ORDERED: MORPHINE 4 MG/1 ML VIAL IV ONE (23:06)
[2019-07-03] MEDS ORDERED: MORPHINE 4 MG/1 ML VIAL ONE (23:08)
[2019-07-04] MEDS: MORPHINE 4 MG/1 ML VIAL IV PRN ×4 (02:04→19:39)
[2019-07-04 03:46] LABS: ABG HCO3 40.9 MMOL/L (20-26); ABG Oxygen Saturation 91.5 % (95-100); ABG PCO2 63.8 MM HG (35-48); ABG PH 7.442 (7.35-7.45); ABG PO2 56.5 MM HG (80-95); ABG TCO2 41.2 MMOL/L (23-27); Allen Test Positive; Pt O2 Delivery Device BIPAP
[2019-07-04 04:23] LABS: Basophils % 0.1 % (0.0-0.8); Eosinophils # 0.1 10*3/uL (0.0-0.87); Eosinophils % 0.7 % (0.00-10.9); Hematocrit 21.6 VOL% (42.0-52.0); Hemoglobin 6.8 GM/DL (14.0-18.0); Immature Granulocytes % 1.3 %; Lymphocytes # 2.4 10*3/uL (1.4-4.0); Mean Corpuscular HGB Conc 31.5 GM/DL (32-36); Mean Corpuscular Volume 109.1 FL (87-102); Mean Platelet Volume 9.7 FL (9.6-12.0); Monocytes % 12.2 % (1.7-12.7); NRBC # 0.02 10*3/uL; Neutrophils % 69.7 % (38.7-73.9); Platelet Count 77 T/CUMM (130-400); Red Blood Count 1.98 MC/CUMM (3.8-5.5); Red Cell Distribution Width 22.9 % (9.3-17.3); White Blood Count 15.1 T/CUMM (4-12)
[2019-07-04] MEDS: CEFEPIME 1,000 MG in SODIUM CHLORIDE 0.9% 100 ML IV SCH ×4 (04:28→21:20)
[2019-07-04 04:37] LABS: INR 1.8; PT Patient Result 19.6 SECS (9.6-12.2)
[2019-07-04 04:50] LABS: Albumin 2.1 G/DL (3.4-5.0); Calcium 8.9 MG/DL (8.5-10.1); Osmolality,Calculated 288.3 MOS/KG (273-304); Total Protein 5.6 G/DL (6.4-8.3)
[2019-07-04 04:51] LABS: Hypochromasia 1+; Platelet Estimate Decreased
[2019-07-04 04:52] LABS: Bilirubin,Total 13.5 MG/DL (0.2-1.0); Macrocytosis Slight; Polychromasia Slight
[2019-07-04] MEDS: PANTOPRAZOLE 40 MG VIAL IV SCH ×2 (09:16→21:20)
[2019-07-04] MEDS: FUROSEMIDE 20 MG/2 ML VIAL IV SCH ×2 (09:20→16:14)
[2019-07-04] MEDS: LEVOFLOXACIN INJ 500 MG in PREMIX 1 EACH IV SCH (09:20)
[2019-07-04] MEDS: FOLIC ACID 1 MG TABLET PO SCH (09:22)
[2019-07-04] MEDS: SUCRALFATE 1 GM TABLET PO SCH ×4 (09:22→21:27)
[2019-07-04] MEDS: NOREPINEPHRINE 8 MG in SODIUM CHLORIDE 0.9% 242 ML IV PRN ×2 (12:11→21:33)
[2019-07-04] MEDS ORDERED: PHENYLEPHRINE DRIP 40 MG/250 ML PREMIX IV ONE (21:07)
[2019-07-04] MEDS ORDERED: ALBUMIN 25% 25 GM in PREMIX 1 EACH IV ONE (21:19)
[2019-07-04] MEDS ORDERED: HYDROmorphone 2 MG/1 ML VIAL IV ONE (21:19)
[2019-07-04] MEDS: PHENYLEPHRINE DRIP 40 MG/250 ML PREMIX IV PRN (21:20)
[2019-07-05 02:13] LABS: Basophils % 0.1 % (0.0-0.8); Eosinophils # 0.1 10*3/uL (0.0-0.87); Eosinophils % 0.3 % (0.00-10.9); Hematocrit 22.7 VOL% (42.0-52.0); Hemoglobin 6.9 GM/DL (14.0-18.0); Immature Granulocytes % 1.7 %; Immature Granulocytes Absolute 0.32 #; Lymphocytes # 2.7 10*3/uL (1.4-4.0); Lymphocytes % 14.3 % (21.2-54.2); Mean Corpuscular HGB Conc 30.4 GM/DL (32-36); Mean Corpuscular Volume 114.1 FL (87-102); Mean Platelet Volume 10.4 FL (9.6-12.0); Monocytes % 13.7 % (1.7-12.7); NRBC # 0.03 10*3/uL; Neutrophils % 69.9 % (38.7-73.9); Platelet Count 106 T/CUMM (130-400); Red Blood Count 1.99 MC/CUMM (3.8-5.5); Red Cell Distribution Width 22.5 % (9.3-17.3); White Blood Count 18.8 T/CUMM (4-12)
[2019-07-05] MEDS: NOREPINEPHRINE 8 MG in SODIUM CHLORIDE 0.9% 242 ML IV PRN ×4 (02:27→14:57)
[2019-07-05 02:31] LABS: Albumin 2.5 G/DL (3.4-5.0); Calcium 9.3 MG/DL (8.5-10.1); Osmolality,Calculated 298.7 MOS/KG (273-304); Total Protein 6.2 G/DL (6.4-8.3)
[2019-07-05 02:34] LABS: Bilirubin,Total 14.7 MG/DL (0.2-1.0)
[2019-07-05] MEDS: MORPHINE 4 MG/1 ML VIAL IV PRN ×14 (03:40→23:35)
[2019-07-05] MEDS: CEFEPIME 1,000 MG in SODIUM CHLORIDE 0.9% 100 ML IV SCH ×3 (04:23→16:26)
[2019-07-05 04:28] LABS: Macrocytosis 1+; Polychromasia Few
[2019-07-05 04:29] LABS: Anisocytosis 1+; Hypochromasia Slight
[2019-07-05 04:30] LABS: Platelet Estimate Adequate
[2019-07-05] MEDS ORDERED: MORPHINE 4 MG/1 ML VIAL IV PRN (05:59)
[2019-07-05] MEDS: FOLIC ACID 1 MG TABLET PO SCH (08:58)
[2019-07-05] MEDS: SUCRALFATE 1 GM TABLET PO SCH ×3 (08:58→16:26)
[2019-07-05] MEDS: FUROSEMIDE 20 MG/2 ML VIAL IV SCH ×2 (09:06→16:22)
[2019-07-05] MEDS: PANTOPRAZOLE 40 MG VIAL IV SCH (09:10)
[2019-07-05] MEDS: LEVOFLOXACIN INJ 500 MG in PREMIX 1 EACH IV SCH (09:20)
[2019-07-05] MEDS: PHENYLEPHRINE DRIP 40 MG/250 ML PREMIX IV PRN (10:28)
== END 2019-07-05 23:39 | disposition expired | DRG 871 ==
LOC: N.ED 19:24 → SUATTDRO 22:59 → N.EDINP 22:59 → N.CC 23:39
PROVIDERS: ADMIT Family Medicine; ATTEND Internal Medicine